=== PATIENT | female | born 1960 | race Caucasian/White ===

== ENCOUNTER → 2017-01-27 | Outpatient (CLI) | payer BC ==
--- NOTE | 2017-03-02 03:22 | HKNOTE ---
DATE OF SERVICE: 01/27/2017 MAIN COMPLAINT: Pain in the right knee. HISTORY OF MAIN COMPLAINT: Patient is a 56-year-old female who complains of pain in her right knee which has been present on and off for about 30 years, but has become increasingly noticeable in the last 10 years. The pain is now severe. Patient is referred by a former patient of mine. PRESENT COMPLAINTS: The pain in the right knee is localized to the knee without radiation. Pain is described as being severe. Has been particularly much worse in the last 6 months. Pain is aggrava sharmila by walking, running, stair climbing. She does get rest pain and night pain. She takes Tylenol and Advil which do not help very much. She has no history of back pain, no numbness or tingling in her legs. The knee quite frequently gives way. In fact, she fell 2 weeks ago when the knee had an unstable ep isode. The knee does not lock. She has not noticed any swelling. She does limp all the time. She does not have a shoe lift. She can clip her toenails and put on he r shoes and socks. PAST ORTHOPEDIC HISTORY: Operative arthroscopy of the right knee 30 years ago. The patient states that the surgeon "shaved the knee." PRIOR CORTISONE INTAKE: None. ALCOHOL INTAKE: None. OTHER JOINT PROBLEMS: None. BLOOD TESTS FOR ARTHRITIS: None. PRIOR INJURIES TO HIPS OR KNEES: Only as above. 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 PAST MEDICAL HISTORY: Dyspepsia. PAST SURGICAL HISTORY: Ventral hernia surgery 10 years ago, operative arthroscopy on the right knee 30 years ago. DRUG ALLERGIES: NONE. MEDICATIONS: Prilosec 40 mg a day. FAMILY HISTORY: Father at 41 of unstated cause. Mother at 86 of unstated cause. SYSTEMS REVIEW: Prone to heartburn, varicose veins, gait disturbance, hemorrhoids, otherwise negati ve. HABITS: The patient smoked for 10 years and gave up smoking 25 years ago. Alcohol intake, none. FAMILY DOCTOR: Edith Schaffer, [facility], [id number], [place] [address] PHYSICAL EXAMINATION: GENERAL: The patient is a delightful and fit looking 56-year-old female, somewhat overweight. VITAL SIGNS: Height 5 feet 9 inches, weight 250 pounds, blood pressure 175/80, temperature 98.3. Patient walks without a walking aid. Her gait is normal. HIPS: Both hips have a full range of motion without pain. RIGHT KNEE: The right knee shows normal alignment. Active and passive extension is 0 degrees. Flexi on lacks 20 degrees (painful). The medial and lateral collateral ligaments and cruciate ligaments ar e intact. Erica test is negative. There is 1+ effusion, tender over the medial joint line, 1+ crep itus. There is no scarring or cysts. The patella tracks normally. There is no tenderness on the art icular surface of the patella or in the patellar groove. The Q angle is normal. LEFT KNEE: The left knee shows normal alignment. Active and passive extension is 0 degrees. Active and passive flexion is 135 degrees. The medial and lateral collateral ligaments and cruciate ligamen ts are intact. Erica test is negative. There is no effusion, tenderness, scarring, crepitus, or cy sts. The patella tracks normally. There is no tenderness on the articular surface of the patella or in the patellar groove. The Q angle is normal. IMAGING: Plain x-rays brought with her were reviewed. These show mild narrowing of the medial comp artment of both knees. The right knee patella is subluxed laterally with marked narrowing of the la teral patellofemoral joint. An MRI scan of the right knee obtained on 09/30/2016 WITHOUT CONTRAST, is reported by Dr. Torres as showing "severe patellofemoral compartment osteoarthrosis. New core d egeneration of the anterior cruciate ligament. No evidence of meniscal tear. No acute osseous abno rmality. Possible popliteus myotendinitis." DIAGNOSES: 1. Severe degenerative osteoarthritis of the right patellofemoral joint. 2. Mild degenerative osteoarthritis of medial and lateral compartments of the right knee. 3. Chronic dyspepsia. MANAGEMENT: The patient was advised that since she has these cardinal symptoms of an internal deran gement of the knee, namely instability and swelling, it is surprising that the MRI scan does not jeremiah w a tear of a meniscus. She was, however, advised that the MRI scan has a 5% chance of missing significant pathology. She has fairly significant arthritis in her knee, especially in the patellofemoral joint. She was a dvised to avoid squatting and stair climbing as much as she can. Under sterile conditions, she was given injection of 2 mL of Kenalog and 6 mL of 2% lidocaine into t he right knee. If her symptoms do not settle down, and especially if she continues to have instability of the knee, she will return for reevaluation and will probably need at least an arthroscopic evaluation of the knee and surgical management of whatever pathology is amenable to surgical treatment. Patient will call if and when further treatment is desired. Dictated By: MANI SHAFFER/JUDITH Conf#: [id number] DID#: [id number]
== END | disposition home or self-care (01) ==
LOC: HKI 10:26
DX: M17.11 Unilateral primary osteoarthritis, right knee (principal); M25.561 Pain in right knee; R10.13 Epigastric pain; Z91.81 History of falling; Z87.891 Personal history of nicotine dependence
CPT/HCPCS: 20610; 73562; G0463

== ENCOUNTER → 2017-03-24 | Outpatient (CLI) | payer BC ==
--- NOTE | 2017-03-24 17:01 | RADRPT ---
PROCEDURE: Right knee radiographs. CLINICAL INDICATION: Right knee pain. TECHNIQUE: Three views. Weight bearing. Frontal, lateral, and patellar view. COMPARISON: No prior studies are available for comparison. FINDINGS: There is no fracture or dislocation. The soft tissues are normal. There are degenerative changes with osteophytes arising from all 3 joint compartment margins. There is lateral joint compartment narrowing and patellofemoral joint compartment narrowing, subarticular sclerosis. There is no lytic or blastic lesion. There is no radiopaque foreign body. IMPRESSION: 1. Moderate degenerative changes of the right knee. RPTAT: QQ .Jose F Cornell MD, MD Date Time Electronically viewed and signed by .Jose F Cornell MD, MD on 03/24/2017 17:00 .R/
--- NOTE | 2017-03-24 19:56 | HKNOTE ---
DATE OF SERVICE: 03/24/2017 MAIN COMPLAINT: Pain in the right knee. HISTORY OF MAIN COMPLAINT: The patient continues to complain of pain in her right knee. She got so me relief for about 2 weeks after I gave her a cortisone injection at her last visit. Since then, t he pain has become progressively worse. She gets pain with every step while walking and she gets pa in at night, which keeps her awake. She has been taking Advil which does not seem to help at all. The pain is the overlying problem, but the instability of the knee is not far behind. PHYSICAL EXAMINATION: VITAL SIGNS: Blood pressure 155/76, temperature 97.8. RIGHT KNEE: The right knee shows normal alignment. Active and passive extension is 0 degrees. Flexion lacks 25 degrees (markedly painful). 1+ effusion. 2+ crepitus. The medial and lateral co llateral ligaments and cruciate ligaments are intact. Erica test is negative. There is no scarring or cysts. The patella tracks laterally with severe crepitus. There is no tenderness on the articula r surface of the patella or in the patellar groove. The Q angle is normal. IMAGING: X-rays were obtained today (the ones reviewed at the last visit were at least 6 months old ). These show lateral subluxation of the patella with severe degenerative changes of the lateral pa tellofemoral joint. Moderate narrowing of both medial and lateral joint lines with no apparent bone -on-bone contact. An AP x-ray in flexion shows that the joint spaces are somewhat narrowed, but sti ll no [id number] contact or other secondary degenerative changes. DISCUSSION: A 57-year-old female whose life is being severe and impacted by a constant pain during the day and pain keeping her awake at night. There is instability of the knee every day, which suggests that she has a torn meniscus. Her pain, otherwise emanates from the arthritis in her knee. MANAGEMENT: 1. The patient is given a prescription for Temazepam 7.5 mg p.o. daily at bedtime. 2. She was given a prescription for diclofenac 50 mg b.i.d. We spent some time discussing the issues of knee replacement versus arthroscopic surgery. The instability is almost certainly due to a torn meniscus, but there is more going on here than a t orn meniscus. I recommend that she have an arthroscopic evaluation of the knee with suitable treatm ent for whatever pathology is found, but first we will give her a trial of diclofenac. She underst ands that Dr. Guzman will be performing the surgery. Dictated By: MANI APPIAH MD HH/NTS Conf#: [id number] DID#: [id number] CC: EARNEST GUZMAN MD;*EndCC*
== END | disposition home or self-care (01) ==
LOC: HKI 10:17
DX: M25.561 Pain in right knee (principal)
CPT/HCPCS: 73562; G0463